=== PATIENT | female | born 1940 | race Caucasian/White ===

== ENCOUNTER → 2017-04-01 | Outpatient (CLI) | payer MEDICARE, OTHER ==
[~2017-04-01] MED LIST: ALBU8.5H12 IH; AMOX875T60 PO; ASPI-1471 PO; ATOR40TA24 PO; BENZ200C15 PO; CHLO-172 PO; CHOL100058 PO; FLU IM; FLU45SYR25 IM ONLY; FLUT15.88 NS; HYDR-2966 PO; LAN30PT PO; LEVO-85 PO; LEVO50TA80 PO; LEVO88TA45 PO; MOX400 PO; MULT-865 PO; NITR-105 PO; OMEP40CA48 PO; OXYGENHOME INH; PANT40SU3 PO; PNEU0.5D3 IM; PRED20TA6 PO; RANI-320 PO; RANI-324 PO; SULF-198 PO; UMEC1DIS INH; VITA1CAP46 PO
--- NOTE | 2017-04-01 11:42 | RADIOLOGY IMAGING REPORT ---
FACILITY: [facility] - [place] PATIENT NAME: Verito Hood : 1940 MR: [id number] V: [id number] EXAM DATE: ORDERING PHYSICIAN: VALERIA GUZMAN TECHNOLOGIST: Location: [facility] Patient: Verito Hood : 1940 Visit/Account:[id number] Date of Sevice: 04/01/2017 Exam type: CHEST PA AND LAT History: Shortness of breath rule out pneumonia Comparison: March 11, 2016. Findings: The lungs are free of acute effusions, infiltrates or edema. Cardiac silhouette is normal in size. Gentle S-shaped scoliosis of the thoracal lumbar spine. Surgical clips are present right upper quadr ant of abdomen. IMPRESSION: 1. No acute cardiopulmonary process is seen Report Dictated By: Neeru Franco MD at 04/01/2017 11:36 AM Report E-Signed By: Neeru Franco MD at 04/01/2017 11:37 AM WSN:[email or web address]
== END ==
LOC: RAD 11:06
PROVIDERS: ATTEND Nurse Practitioner Primary Care
DX: R05 Cough (principal)
CPT/HCPCS: 71046

== ENCOUNTER → 2018-03-04 | Outpatient (CLI) | payer MEDICARE ==
[~2018-03-04] MED LIST changes: -RANI-324 PO; +RANI-366 PO
--- NOTE | 2018-03-04 11:44 | RADIOLOGY IMAGING REPORT ---
FACILITY: [facility] PATIENT NAME: Verito Hood : 1940 MR: [id number] V: [id number] EXAM DATE: ORDERING PHYSICIAN: GILLIAN CHERY TECHNOLOGIST: Location: [facility] [place] Patient: Verito Hood : 1940 Visit/Account:[id number] Date of Sevice: 03/04/2018 DEXA Scan Clinical history: Postmenopausal. Comparison: DEXA scan from 05/24/2015. LUMBAR SPINE: The bone mineral density (BMD) measured from L1-L4 correlates with a Z-score of 2.2 and a T-score of 1 which is Normal as defined by the World Health Organization. The corresponding risk of fracture in the lumbar spine is Not increased compared with a young adult reference population. This value has decrease by 0.4 % since the prior study. More than 5% change is considered significant. HIP: Bone mineral density (BMD) measured in the LEFT total hip region correlates with a Z-score 0.6 and a T-score of by 0.8 which is normal as defined by the World Health Organization. The corresponding risk of fracture in the hip is 1-2 t imes increased compared to a young adult reference population. This value has increase by one % since the prior study. More than 5% change is considered significant. T score left femoral neck -1.0 Bone mineral density (BMD) measured in the Femoral Neck region measures 0.895 g/cm?. IMPRESSION: 1. Lumbar spine: Normal. There has been 0.4% decrease in the bone mineral density since the previou s exam. 2. Left Total Hip: Normal. There has been 1% increase in the bone mineral density since the previou s exam. 3. Femoral Neck: Bone Mineral Density is 0.895 g/cm? The next DEXA scan of this patient should include the following sites: L1-L4 and the left hip. FRAX? WHO Fracture Risk Assessment Tool link: <http://www.shef.ac.uk/FRAX/tool.jsp?locationValue=9> PLEASE NOTE: 1) The World Health Organization defines low BMD as follows: T-score Normal > -1 Osteopenia < -1 and > -2.5 Osteoporosis < -2.5 without fractures Established osteoporosis < -2.5 with fractures 2) In general, you may wish to consider: Diagnosis Treatment Follow-up DEXA Normal BMD Prevention 2-3 years Osteopenia Prevention/therapy 1-2 years Osteoporosis Therapy Yearly 3) Fracture risk estimated from the T-score is more accurate for vertebral fractures (often spontane ous) than for hip fractures. Report Dictated By: Neeru Franco MD at 03/04/2018 11:37 AM Report E-Signed By: Neeru Franco MD at 03/04/2018 11:39 AM WSN:[email or web address]
== END ==
LOC: RAD 07:00
PROVIDERS: ATTEND Nurse Practitioner Family
DX: Z13.820 Encounter for screening for osteoporosis (principal); R29.890 Loss of height; Z78.0 Asymptomatic menopausal state
CPT/HCPCS: 77080